=== PATIENT | male | born 1935 | race African-American/Black ===

== ENCOUNTER 2021-12-17 11:15 | Emergency (ER) | payer MEDICARE, MEDICAID ==
[2021-12-17 12:50] LABS: Anion Gap 16 mmol/L (10-20); BUN (Urea Nitrogen) 31 mg/dL (8.4-25.7); Calc. Creatinine Clearance 0 mL/min (70-130); Calcium 10.7 mg/dL (7.8-10.44); Carbon Dioxide 31 mmol/L (23-31); Chloride 96 mmol/L (98-107); Glucose 113 mg/dL (83-110); Sodium 140 mmol/L (136-145)
[2021-12-17 12:53] LABS: Potassium 2.7 mmol/L (3.5-5.1)
[2021-12-17] MEDS ORDERED: Potassium Chloride 20 MEQ TAB ONE (13:00)
[2021-12-17 13:17] LABS: Magnesium 2.1 mg/dL (1.6-2.6)
[2021-12-17 13:59] LABS: #Monocytes 0.9 10x3/uL (0.0-1.1); #Neutrophils 7.4 10x3/uL (1.5-8.4); %Basophils 0.2 % (0.0-2.0); %Eosinophils 0.1 % (0.0-6.0); %Lymphocytes 14.8 % (18.0-47.0); %Monocytes 9.3 % (0.0-10.0); %Neutrophils 75.2 % (40.0-75.0); Hemoglobin 11.8 g/dL (13.5-17.5); Mean Corpuscular Hemoglobin 32.1 pg (27.0-33.0); Mean Corpuscular Volume 94.3 fl (81.2-95.1); Platelet Count 206 10x3/uL (150-450); RBC Distribution Width 16.6 % (11.5-14.5); Red Blood Cell (RBC) Count 3.68 10x6/uL (4.32-5.72); White Blood Cell (WBC) Count 9.8 10x3/uL (3.5-10.5)
[2021-12-17] MEDS ORDERED: Fentanyl 100 MCG/2 ML VIAL ONE (14:06)
[2021-12-17] MEDS ORDERED: Magnesium 2 GM/50 ML BAG (IN WATER) ONE (14:06)
[2021-12-17 17:44] LABS: SARS-CoV-2 NAA Rapid Test Not Detected (NotDetected)
== END 2021-12-17 16:49 ==
LOC: CSHERS 11:15
DX: S72.002A Fracture of unspecified part of neck of left femur, initial encounter for closed fracture (principal); E87.6 Hypokalemia; E78.5 Hyperlipidemia, unspecified; I12.0 Hypertensive chronic kidney disease with stage 5 chronic kidney disease or end stage renal disease; N18.6 End stage renal disease; F17.220 Nicotine dependence, chewing tobacco, uncomplicated; Z79.899 Other long term (current) drug therapy; Z99.2 Dependence on renal dialysis; W19.XXXA Unspecified fall, initial encounter
CPT/HCPCS: 73502; 73564; 80048; 83735; 85025; 93005; U0002; 36415; 96365; 96375; J3010; J3475